=== PATIENT | female | born 1950 ===

== ENCOUNTER 2019-04-12 13:15 | Inpatient (IN) | payer OTHER ==
[~2019-04-12] VITALS: Ht 160 cm; Wt 63.0 kg
[2019-04-12] MEDS ORDERED: METFORMIN HCL500 M3 PO (13:38)
[2019-04-18] MEDS ORDERED: NEURONTIN300 MG PO (14:31)
[2019-04-21] MEDS ORDERED: DEMEROL100 MG PO (07:30)
[2019-04-21] MEDS ORDERED: DUI500 PO (07:30)
[2019-04-21] MEDS ORDERED: ELIQUIS2.5 MG PO (07:30)
== END 2019-04-21 10:33 | disposition home or self-care (01) | DRG 470 ==
LOC: O/R 13:15 → SURH 04-18 05:30 → O/R 04-18 05:30 → SURH 04-19 02:20
PROVIDERS: ADMIT Orthopaedic Surgery
PROC: 0SRB039 Replacement of Left Hip Joint with Ceramic Synthetic Substitute, Cemented, Open Approach (ICD-10-PCS; principal; 2019-04-18 09:30)
DX: M16.12 Unilateral primary osteoarthritis, left hip (principal); D62 Acute posthemorrhagic anemia; E66.09 Other obesity due to excess calories; E11.9 Type 2 diabetes mellitus without complications; M47.812 Spondylosis without myelopathy or radiculopathy, cervical region; Z79.4 Long term (current) use of insulin

== ENCOUNTER 2021-11-07 11:45 | Inpatient (IN) | payer OTHER ==
[~2021-11-07] VITALS: Ht 160 cm; Wt 68.0 kg
[~2021-11-07 11:45] MED LIST: DEMEROL100 MG PO; DUI500 PO; ELIQUIS2.5 MG PO; METFORMIN HCL500 M3 PO; NEURONTIN300 MG PO
[2021-11-11] MEDS ORDERED: PANTOPRAZOLE SO40 MG (13:19)
[2021-11-11] MEDS ORDERED: MIRTAZAPINE15 MG (13:19)
[2021-11-11] MEDS ORDERED: IBANDRONATE SO150 MG (13:19)
[2021-11-13] MEDS ORDERED: MS CONTIN30 M1 PO (14:48)
[2021-11-13] MEDS ORDERED: DUI500 PO (14:48)
[2021-11-13] MEDS ORDERED: ELIQUIS2.5 MG PO (14:48)
[2021-11-13] MEDS ORDERED: TORADOL60 MG IM (14:55)
== END 2021-11-13 19:04 | disposition home or self-care (01) | DRG 470 ==
LOC: O/R 11-11 06:00 → SURG 11-11 06:00 → SURH 11-11 11:45 → SURG 11-11 13:37 → SURH 11-11 17:15 → SURG 11-13 19:04
PROVIDERS: ADMIT Orthopaedic Surgery; ATTEND Orthopaedic Surgery
PROC: 3E0F7SF Introduction of Other Gas into Respiratory Tract, Via Natural or Artificial Opening (ICD-10-PCS; 2021-11-11)
PROC: 0SR90J9 Replacement of Right Hip Joint with Synthetic Substitute, Cemented, Open Approach (ICD-10-PCS; principal; 2021-11-11 17:15)
PROC: 30233N1 Transfusion of Nonautologous Red Blood Cells into Peripheral Vein, Percutaneous Approach (ICD-10-PCS; 2021-11-12)
DX: M16.11 Unilateral primary osteoarthritis, right hip (principal); D62 Acute posthemorrhagic anemia; M25.751 Osteophyte, right hip; M70.61 Trochanteric bursitis, right hip; E11.9 Type 2 diabetes mellitus without complications; E66.09 Other obesity due to excess calories